=== PATIENT | female | born 1965 | race Caucasian/White ===

== ENCOUNTER → 2017-12-02 | Outpatient (CLI) | payer OTHER ==
[~2017-12-02] MED LIST: BIOT1POW2; CETI10CA; HYDR1LIQ6 PO; LISI-167; LUTE20CA13; PROM50SU6 PO; VIT1TABL
== END | disposition home or self-care (01) ==
LOC: CFH 09:19
PROVIDERS: ATTEND Obstetrics & Gynecology
DX: Z12.31 Encounter for screening mammogram for malignant neoplasm of breast (principal); M81.0 Age-related osteoporosis without current pathological fracture; M85.88 Other specified disorders of bone density and structure, other site; Z78.0 Asymptomatic menopausal state
CPT/HCPCS: 77063; 77080; 77067

== ENCOUNTER → 2017-12-28 | Outpatient (CLI) | payer OTHER | END | disposition home or self-care (01) | LOC: CFH 07:59 | PROVIDERS: ATTEND Podiatrist Foot & Ankle Surgery | DX: M76.72 Peroneal tendinitis, left leg (principal) ==

== ENCOUNTER 2017-12-30 05:55 | Emergency (ER) | payer OTHER ==
[~2017-12-30] VITALS: Ht 170.2 cm; Wt 63.0 kg
[2017-12-30] MEDS ORDERED: FOLIC ACID (06:06)
[2017-12-30] MEDS ORDERED: [UNRECOGNIZED DRUG - OTHER] (06:06)
[2017-12-30] MEDS ORDERED: LEVO5TAB29 PO (06:06)
[2017-12-30] MEDS ORDERED: VITAMIN D (06:06)
[2017-12-30 06:59] LABS: BASOPHILS # (AUTO) 0.02 x10^3/uL (0-0.1); BASOPHILS % (AUTO) 0 % (0-1); EOSINOPHILS # (AUTO) 0.16 x10^3/uL (0-0.4); EOSINOPHILS % (AUTO) 3 % (1-7); LYMPHOCYTES # (AUTO) 1.23 x10^3/uL (1-3.4); LYMPHOCYTES % (AUTO) 21 % (22-44); MD NO; MEAN CORPUSCULAR HEMOGLOBIN 29.6 pg (27.0-34.8); MEAN CORPUSCULAR HGB CONC 33.7 g/dL (32.4-35.8); MEAN CORPUSCULAR VOLUME 87.9 fL (80-100); MEAN PLATELET VOLUME 7.9 fL (7.4-10.4); MONOCYTES # (AUTO) 0.43 x10^3/uL (0.2-0.8); MONOCYTES % (AUTO) 7 % (2-9); NEUTROPHILS # (AUTO) 3.97 x10^3/uL (1.8-6.8); NEUTROPHILS % (AUTO) 68 % (42-75); PLATELET COUNT 267 x10^3/uL (130-400); RED BLOOD COUNT 4.75 x10^6/uL (3.82-5.3); RED CELL DISTRIBUTION WIDTH 12.7 % (9.6-15.2)
[2017-12-30] MEDS ORDERED: SODIUM CHLORIDE FLUSH 10ML SYR IVF ONE (07:00)
[2017-12-30 07:12] LABS: ALBUMIN 3.6 g/dL (3.4-5.0); ANION GAP 6 mmol/L (5-15); CALCIUM 8.4 mg/dL (8.5-10.1); CHLORIDE 109 mmol/L (98-107); CREATININE 0.62 mg/dL (0.55-1.02)
[2017-12-30] MEDS ORDERED: OMNIPAQUE 350 MG/ML, 150 ML BOTTLE ONE (08:34)
[2017-12-30 09:17] VITALS: BP 112/81
== END 2017-12-30 10:04 | disposition home or self-care (01) ==
LOC: ED 09:58
DX: M25.572 Pain in left ankle and joints of left foot (principal); G89.29 Other chronic pain; I10 Essential (primary) hypertension
CPT/HCPCS: 36415; 73706; 80048; 82040; 85025; 93971; 99285; Q9967

== ENCOUNTER → 2018-01-26 | Outpatient (CLI) | payer OTHER ==
[~2018-01-26] MED LIST changes: +FOLIC ACID; +LEVO5TAB29 PO; +VITAMIN D; +[UNRECOGNIZED DRUG - OTHER]
[2018-01-26 17:08] LABS: C-REACTIVE PROTEIN, QUANT 0.14 mg/dL (0.02-0.49)
[2018-01-26 17:35] LABS: CREATINE KINASE, TOTAL 56 U/L (26-192); FREE T4 (FREE THYROXINE) 0.97 ng/dL (0.76-1.46)
[2018-01-26 17:56] LABS: FOLATE LEVEL > 20.0 ng/mL (3.1-17.5)
== END | disposition home or self-care (01) ==
LOC: LAB 15:52
PROVIDERS: ATTEND Family Medicine
DX: M62.50 Muscle wasting and atrophy, not elsewhere classified, unspecified site (principal); R20.2 Paresthesia of skin
CPT/HCPCS: 36415; 82306; 82550; 82553; 82607; 82746; 84439; 84443; 84480; 85651; 86038; 86140; 86430

== ENCOUNTER → 2019-01-30 | Outpatient (CLI) | payer OTHER ==
[2019-01-30 15:37] LABS: BILIRUBIN, DIRECT 0.2 mg/dL (0.1-0.2)
[2019-01-30 15:39] LABS: BILIRUBIN,INDIRECT 0.8 mg/dL (0.0-2.0); TOTAL PROTEIN 7.8 g/dL (6.4-8.2)
== END | disposition home or self-care (01) ==
LOC: CFH 13:49
PROVIDERS: ATTEND Family Medicine
DX: M47.814 Spondylosis without myelopathy or radiculopathy, thoracic region (principal); B35.1 Tinea unguium; M79.662 Pain in left lower leg
CPT/HCPCS: 36415; 72072; 72110; 80076

== ENCOUNTER 2019-10-18 13:24 | Emergency (ER) | payer OTHER ==
[~2019-10-18] VITALS: Ht 170.2 cm; Wt 66.0 kg
[2019-10-18] MEDS ORDERED: SODIUM CHLORIDE FLUSH 10ML SYR IVF ONE (13:30)
[2019-10-18] MEDS ORDERED: PLEASE ENTER HEIGHT AND WEIGHT MC SCH (13:34)
[2019-10-18] MEDS ORDERED: HYDROmorphone 1 MG/ML, 1ML INJ ONE ×2 (13:43→16:29)
[2019-10-18] MEDS: HYDROmorphone 1 MG/ML, 1ML INJ IVPush PRN ×2 (13:46→16:33)
--- NOTE | 2019-10-18 13:55 | NUR ---
PT WITH [facility]GL[facility] TODAY, INJURY SUSTAINED TO L SHOULDER, L RIB AREA. -LOC. PT STATES SHE WAS ATTEMPTING TO SECURE HER DOG IN HER HOME AND SHE LANDED ON HER L SHOULDER. CMS INTACT. PT CUT OUT OF SHIRT PER PT PERMISSION. PIV INITIATED. PT MEDICATED PER MAR FOR PAIN. AWAITING IMAGING
--- NOTE | 2019-10-18 14:26 | NUR ---
Break MT: Dr. Sarmiento for ortho paged at this time.
[2019-10-18] MEDS ORDERED: PROPOFOL 10 MG/ML, 20ML IVPush ONE (15:00)
[2019-10-18] MEDS ORDERED: PROPOFOL 10 MG/ML, 20ML ONE (15:21)
--- NOTE | 2019-10-18 15:30 | NUR ---
PT WITH SUCCESSFUL SHOULDER REDUCTION. SEE PAPER CHART FOR VS, CONSENT AND PROCEDURAL NOTES
[2019-10-18 16:22] VITALS: BP 124/77
--- NOTE | 2019-10-18 16:22 | NUR ---
POST REDUCTION IMAGING COMPLETED, VSS, NAD NOTED
--- NOTE | 2019-10-18 17:15 | NUR ---
PT ESCORTED TO LOBBY TO MEET FAMILY MEMBER FOR RIDE, PT STABLE ON DC
== END 2019-10-18 17:45 | disposition home or self-care (01) ==
LOC: ED 14:10
DX: S43.015A Anterior dislocation of left humerus, initial encounter (principal); S42.252A Displaced fracture of greater tuberosity of left humerus, initial encounter for closed fracture; I10 Essential (primary) hypertension; Z90.49 Acquired absence of other specified parts of digestive tract; Z90.710 Acquired absence of both cervix and uterus; W01.0XXA Fall on same level from slipping, tripping and stumbling without subsequent striking against object, initial encounter; Y93.89 Activity, other specified; Y92.098 Other place in other non-institutional residence as the place of occurrence of the external cause; Y99.8 Other external cause status
CPT/HCPCS: 23650; 73020; 73030; 73060; 99284; J1170

== ENCOUNTER → 2019-10-20 | Outpatient (CLI) | payer OTHER | END | disposition home or self-care (01) | LOC: RAD 15:37 | PROVIDERS: ATTEND Orthopaedic Surgery | DX: S43.032A Inferior subluxation of left humerus, initial encounter (principal); S42.292A Other displaced fracture of upper end of left humerus, initial encounter for closed fracture; X58.XXXA Exposure to other specified factors, initial encounter; Y93.89 Activity, other specified; Y92.89 Other specified places as the place of occurrence of the external cause; Y99.8 Other external cause status ==

== ENCOUNTER 2019-10-31 09:00 | Day surgery (SDC) | payer OTHER ==
[~2019-10-31] VITALS: Ht 170.2 cm; Wt 64.5 kg
[~2019-10-31 09:00] MED LIST changes: +ACYC-114 PO; +AMLO-150 PO; +BIVALIRUDIN 250 MG ONE; +CETI10TA26 PO
[2019-10-31] MEDS ORDERED: ACETAMINOPHEN 500 MG TABLET PO STA (09:28)
[2019-10-31] MEDS ORDERED: GABAPENTIN 300 MG CAPSULE PO STA (09:28)
[2019-10-31 09:30] VITALS: BP 144/84
[2019-10-31] MEDS ORDERED: SCOPOLAMINE 1MG PATCH TD STA (09:34)
[2019-10-31] MEDS ORDERED: MIDAZOLAM 1 MG/ML, 2ML ONE (09:44)
[2019-10-31] MEDS ORDERED: FENTANYL PF 250 MCG/5ML ONE (09:44)
[2019-10-31] MEDS ORDERED: PROPOFOL 10 MG/ML, 20ML ONE (09:45)
[2019-10-31] MEDS ORDERED: NEOSTIGMINE 1 MG/ML, 10ML ONE (09:45)
[2019-10-31] MEDS ORDERED: CEFAZOLIN 1,000 MG ONE (09:45)
[2019-10-31] MEDS ORDERED: GLYCOPYRROLATE 0.2MG/1ML, 5ML ONE (09:45)
[2019-10-31] MEDS ORDERED: DEXAMETHASONE 4 MG/ML, 1ML ONE (09:45)
[2019-10-31] MEDS ORDERED: ROCURONIUM 10MG/ML,5ML ONE (09:45)
[2019-10-31] MEDS ORDERED: ONDANSETRON 2MG/ML, 2ML ONE (09:45)
[2019-10-31] MEDS ORDERED: LACTATED RINGERS 1,000 ML IV ONE (09:56)
[2019-10-31] MEDS ORDERED: CHLORHEXIDINE 15 ML UDC MM ONE (11:08)
[2019-10-31] MEDS ORDERED: ROPIvacaine/PF 0.2%, 20 ML ONE (11:09)
[2019-10-31] MEDS ORDERED: CHLORHEXIDINE 15 ML UDC ONE (11:09)
[2019-10-31] MEDS ORDERED: HALOPERIDOL 5 MG/ML IV PRN (12:00)
[2019-10-31] MEDS ORDERED: PROMETHAZINE 25 MG/ML, 1ML IV PRN (12:00)
[2019-10-31] MEDS ORDERED: OXYcodone 5 MG/5 ML ORAL.SOL UDC PO PRN (12:00)
[2019-10-31] MEDS ORDERED: HYDROmorphone 2 MG/ML, 1ML IVPush PRN (12:00)
[2019-10-31] MEDS ORDERED: LABETALOL 5MG/ML, 20ML IV PRN (12:00)
[2019-10-31] MEDS ORDERED: FENTANYL PF 100 MCG/2ML IV PRN (12:00)
[2019-10-31] MEDS ORDERED: MORPHINE SULFATE 4 MG/ML, 1ML IVPush PRN (12:00)
[2019-10-31] MEDS ORDERED: MEPERIDINE/PF 25MG/ML,1ML IVPush PRN (12:00)
[2019-10-31] MEDS ORDERED: hydrALAzine 20 MG/ML, 1ML IV PRN (12:00)
== END 2019-10-31 16:55 | disposition home or self-care (01) ==
LOC: OUT 09:00 → EDSTATUS 11:00 → OUT 16:55
PROVIDERS: ATTEND Orthopaedic Surgery
DX: S42.232A 3-part fracture of surgical neck of left humerus, initial encounter for closed fracture (principal); I10 Essential (primary) hypertension; Z79.899 Other long term (current) drug therapy; Z88.2 Allergy status to sulfonamides; Z88.5 Allergy status to narcotic agent; Z88.6 Allergy status to analgesic agent; Z88.8 Allergy status to other drugs, medicaments and biological substances; Z82.49 Family history of ischemic heart disease and other diseases of the circulatory system; W18.39XA Other fall on same level, initial encounter; Y93.89 Activity, other specified; Y92.098 Other place in other non-institutional residence as the place of occurrence of the external cause; Y99.8 Other external cause status
CPT/HCPCS: 23615; 64415; 73060; 82962; C1713; J0583; J0690; J1100; J2250; J2405; J2704; J2710; J2795; J3010; J7120; 76000

== ENCOUNTER → 2020-07-30 | Outpatient (CLI) | payer OTHER ==
[~2020-07-30] MED LIST changes: -BIVALIRUDIN 250 MG ONE; -CETI10TA26 PO; +CETI10TA76 PO
== END | disposition home or self-care (01) ==
LOC: CFH 09:39
PROVIDERS: ATTEND Obstetrics & Gynecology
DX: Z12.31 Encounter for screening mammogram for malignant neoplasm of breast (principal)
CPT/HCPCS: 77063; 77067

== ENCOUNTER → 2021-03-05 | Outpatient (CLI) | payer OTHER ==
[~2021-03-05] MED LIST changes: -ACYC-114 PO; +ACYC-40 PO
== END | disposition home or self-care (01) ==
LOC: CFH 10:18
PROVIDERS: ATTEND Family Medicine
DX: J98.4 Other disorders of lung (principal); R07.81 Pleurodynia